=== PATIENT | female | born 1945 | race Caucasian/White ===

== ENCOUNTER 2016-11-02 16:13 | Inpatient (IN) | payer OTHER ==
[~2016-11-02] VITALS: Ht 154.9 cm; Wt 93.0 kg
[~2016-11-02 16:13] MED LIST: ASPIRIN EC81 M1 PO; BIOTIN1000 MC1 PO; CLARITIN10 M1 PO; GABAPENTIN100 M2 PO; GABAPENTIN300 M2 PO; LISINOPRIL10 M1 PO; LYRICA100 M1 PO; PLAVIX75 M1 PO; PRAVACHOL20 M2 PO; VITAMIN D3400 UNI1 PO
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
--- NOTE | 2016-11-02 16:37 | NUR ---
[facility]. PT WITH C/O INCREASED SOB AND WEAKNESS. PT SPEAKING IN SHORT SENTENCES, SPO2 97-98% RA. LUNGS ARE WHEEZY BILATERAL, WORSE ON LEFT. PT A+OX3, MAEX4. NO PEDAL EDEMA NOTED.
[2016-11-02 17:31] LABS: ABSOLUTE BASOPHIL COUNT 0 /CUMM (0.0-0.2); ABSOLUTE EOSINOPHIL COUNT 0.2 /CUMM (0.0-0.7); ABSOLUTE LYMPH COUNT 1.4 /CUMM (1.2-3.4); BASOPHIL % 0.4 % (0.0-2.0); EOSINOPHIL % 2.2 % (0-5); GRANULOCYTE % 69.2 % (42.2-75.2); HEMATOCRIT 34.4 % (37-47); MEAN CORPUSCULAR HGB 29.9 PG (27.0-31.0); MEAN CORPUSCULAR HGB CONC 32.9 G/DL (33.0-37.0); MEAN CORPUSCULAR VOLUME 90.9 FL (81.0-99.0); MEAN PLATELET VOLUME 8.1 FL (7.4-10.4); PLATELET COUNT 229 /CUMM (130-400); RBC DISTRIBUTION WIDTH 13.9 % (11.5-14.5); RED BLOOD CELL CT 3.79 /CUMM (4.20-5.40); WHITE BLOOD CELL COUNT 8.6 /CUMM (4.8-10.8)
[2016-11-02] MEDS ORDERED: GABAPENTIN100 M2 PO (17:37)
[2016-11-02] MEDS ORDERED: AMLODIPINE BESYL5 M1 PO (17:38)
[2016-11-02] MEDS ORDERED: OMEPRAZOLE20 M2 (17:39)
[2016-11-02] MEDS ORDERED: FOLIC ACID1 M1 PO (17:40)
--- NOTE | 2016-11-02 18:50 | RADIOLOGY REPORT ---
EXAMINATION: XR CHEST CLINICAL INFORMATION: Right-sided lung cancer. COMPARISON: 02/22/2016 TECHNIQUE: 2 views of the chest were obtained. FINDINGS: There is a right-sided implantable single lumen catheter with its tip at the SVC right atrial junction. Previously identified right-sided opacity has resolved. There is questionable hilar prominence on the lateral view not as well-seen on the frontal radiograph. The lungs and pleural spaces otherwise appear clear without evidence of congestion, consolidation, or significant appearing effusion or atelectasis. There is no evidence of pneumothorax or pulmonary edema. Included osseous structures appear largely unremarkable. IMPRESSION: New right-sided central venous catheter, previously identified right lower lung field opacity has resolved.
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
--- NOTE | 2016-11-02 22:59 | NUR ---
[facility] ASSIGNMENT [phone]
[2016-11-02 23:00] VITALS: BP 180/100
--- NOTE | 2016-11-02 23:19 | NUR ---
REPORT CALLED TO JOSE MARTÍNEZ
--- NOTE | 2016-11-02 23:24 | CT SCAN REPORT ---
EXAMINATION: CT CHEST WITHOUT CONTRAST CLINICAL INFORMATION: Increased oxygen requirements with expiratory wheezing. Abnormal chest x-ray. COMPARISON: CT 08/31/2016. Two-view chest x-ray performed earlier the same day. TECHNIQUE: Multidetector volumetric CT imaging of the chest was done. Axial MIP volume rendering provided. Sagittal and coronal reformatted images were obtained. DLP: 299 mGy-cm FINDINGS: There is a new subcarinal mass narrowing the proximal mainstem bronchi due to external compression measuring 4.7 x 6.0 cm on image 22 of series 2. The esophagus is likely also compressed and displaced likely in the periphery of this focus. Findings are concerning for a metastatic attic lymph node given the patient's history. Otherwise there is no evidence of mediastinal adenopathy. There is no hilar lymphadenopathy. A single lumen implanted catheter on the right with its tip at the SVC right atrial junction is again noted. Right middle lobe remains chronically collapsed. A spiculated left lower lobe nodule anteriorly just posterior to the major fissure on image 291 of series 4 measures 1.7 cm in transverse dimension by 1 cm in AP dimension. This appears largely unchanged in overall size. A subcentimeter spiculated opacity in the right apex anteriorly appears unchanged. Scattered groundglass opacities right upper lobe appear largely unchanged. Imaging through the included portions of the upper abdomen appear unremarkable. No aggressive osseous lesions to suggest metastases. IMPRESSION: Increasing subcarinal lymphadenopathy with narrowing of the mainstem bronchi. Pulmonary consultation is recommended. Stable appearing pulmonary nodules.
[2016-11-03] VITALS: BP 140/76
--- NOTE | 2016-11-03 02:00 | Admission Certification ---
Admission Certification Certification Statement - As attending physician, I certify that at the time of - admission, based on clinical presentation, severity of - symptoms, need for further diagnostic testing and - therapeutic interventions, and risk of adverse outcomes - without in-hospital treatment, in my clinical assessment, - this patient requires an acute hospital stay for a minimum - of two nights or longer. I have also considered psychsocial - factors such as support system, advanced age, financial - issues, cognitive issues, and failed out-patient treatments, - past re-admission history, safety of patient, and lack of - compliance as applicable. Specific rationale supporting this admission is: Acute hypoxic respiratory failure in this lady with known lung adenocarcinoma.
[2016-11-03 06:52] VITALS: BP 132/70
--- NOTE | 2016-11-03 07:26 | PN- Housestaff ---
KIERAN INGRAM 11/03/16 0724: Subjective Follow-up For: - Shortness of breath Subjective: Ms. Horne is comfortable this morning. Stated that since she is improved symptomatically, and is not short of breath at baseline. Discussed at length about the prognosis and the treatment of lung adenocarcinoma. Vitals were stable overnight. Currently on room air with oxygen saturation around 98% (at rest). Review of Systems Constitutional: Reports: see HPI. Objective Last 24 Hrs of Vital Signs/I&O Vital Signs Date Time Temp Pulse Resp B/P B/P Pulse O2 O2 Flow FiO2 Mean Ox Delivery Rate 11/03 0652 97.8 94 20 132/70 98 Room Air / 0300 97 Room Air / 0000 140/76 07/ 2300 97.6 84 20 180/100 97 Room Air / 2237 78 157/68 07 2147 76 20 154/68 97 Room Air / 1835 97.0 92 20 172/82 98 Room Air 11/02 1740 100 Room Air / 1734 97 07/05 1619 97.6 95 22 170/84 98 Room Air Intake & Output 11/03 0800 07/ 0000 07/05 1600 Intake Total 840 2000 Output Total Balance 840 2000 Intake, IV 600 2000 Intake, Oral 240 Patient 205 lb 205 lb Weight Weight Reported by Patient Reported by Patient Measurement Method Physical Exam General Appearance: Alert Other Physical Findings: General Exam: AAOx3, mild distress, Skin: No rashes, no breakdown HEENT: PERRLA, EOMI Neck: Supple, No JVD No cervical lymphadenopathy CVS: Reg Rate, Normal S1,S2, No MGR Resp: decreased air entry b/l, b/l rales Abdomen: Soft, No tenderness, Normal Bowel Sounds Neuro: Normal Speech, Strength 5/5 b/l x 4 extremities, Sensation intact, CN III -XII NL, Reflexes 2+ Extremities: No cyanosis, 1+ pedal edema Current Medications: Current Medications Sig/Kaya Start time Last Medication Dose Route Stop Time Status Admin Albuterol Sulfate 3 ML ONCE ONE 11/02 1914 DC 11/02 INH 11/03 1915 190 Albuterol Sulfate 3 ML ONCE ONE 11/02 1830 DC 11/02 INH 11/02 183 1840 Albuterol Sulfate 3 ML ONCE ONE 11/02 1645 DC 07 INH 11/02 1646 1733 Amlodipine Besylate 0 .STK-MED ONE 11/02 2228 DC PO Amlodipine Besylate 5 MG DAILY 11/02 2140 AC 11/02 PO 2237 Azithromycin 500 MG DAILY 11/03 1000 AC Sodium Chloride 250 ML IV Azithromycin 500 MG ONCE ONE 11/02 1945 DC 07 Sodium Chloride 250 ML IV 11/02 2044 2034 Clopidogrel Bisulfate 75 MG Q48 11/04 1000 CAN PO Gabapentin 100 MG QPM 11/02 2200 AC 11/02 PO 2300 Guaifenesin 600 MG Q12 11/02 2244 AC 11/03 PO 0021 Heparin Sodium 0 .STK-MED ONE 11/02 2227 DC (Porcine) .ROUTE Heparin Sodium 5,000 UNIT Q8 11/02 2200 AC 11/02 (Porcine) SC 2236 Ipratropium [place] 2.5 ML ONCE ONE 11/02 1645 DC 07 INH 11/02 1646 1733 Loratadine 10 MG DAILY 11/03 1000 AC PO Methylprednisolone 40 MG Q6 11/02 2359 AC 11/03 IV 0610 Methylprednisolone 0 .STK-MED ONE 11/02 1740 DC .ROUTE Methylprednisolone 125 MG ONCE ONE 11/02 1645 DC 07/ IV 11/02 1646 1736 Sodium Chloride 1,000 ML Q13H 11/02 2245 AC 11/03 IV 11/03 1144 0020 Sodium Chloride 1,000 ML BOLUS ONE 11/02 1915 DC 07/ IV 11/02 2013 2008 Sodium Chloride 1,000 ML BOLUS ONE 11/02 1815 DC 07 IV 11/02 2014 1832 Last 24 Hrs of Lab/Efra Results Last 24 Hrs of Labs/Mics: Laboratory Tests 11/03/16 0611: Sodium Pending, Potassium Pending, Chloride Pending, Carbon Dioxide Pending, Anion Gap Pending, BUN Pending, Creatinine Pending, BUN/Creatinine Ratio Pending , CBC w Diff Pending, WBC Pending, RBC Pending, Hgb Pending, Hct Pending, MCV Pending, MCH Pending, RDW Pending, Plt Count Pending, MPV Pending, PUBS MCHC Pending 11/02/16 2130: Estimated GFR 32 L, BUN/Creatinine Ratio 17.5 11/02/16 1720: Anion Gap 12, Estimated GFR 32 L, BUN/Creatinine Ratio 19.4, Glucose 87, Calcium 9.4, Total Bilirubin 0.3, AST 24, ALT 29, Alkaline Phosphatase 169 H, Troponin I 0.04, Total Protein 8.2, Albumin 4.2, Globulin 4.0, Albumin/Globulin Ratio 1.1, CBC w Diff NO MAN DIFF REQ, RBC 3.79 L, MCV 90.9, MCH 29.9, RDW 13.9 , MPV 8.1, Gran % 69.2, Lymphocytes % 16.8 L, Monocytes % 11.4 H, Eosinophils % 2.2, Basophils % 0.4, Absolute Granulocytes 6.0, Absolute Lymphocytes 1.4, Absolute Monocytes 1.0 H, Absolute Eosinophils 0.2, Absolute Basophils 0, PUBS MCHC 32.9 L Microbiology 11/02 1636 LOWER RESP: Respiratory Culture - COLB 11/02 1636 LOWER RESP: Gram Stain - COLB Assessment/Plan Assessment: Ms. Horne is a 71-year-old woman with a past history of lung adenocarcinoma status post chemotherapy ( x 6 cycles carboplatin/pemetrexed discontinued to due to MICHAEL), questionable discoid lupus, coronary artery disease status post stent ( 2005), 40-45 pack years smoking history (not current smoker), brain metastases ( status post gamma knife) is being evaluated for worsening shortness of breath 2 -3 weeks. Last chemo 07/15. At the time of admission, lab findings indicated no leukocytosis WBC 8.6, hemoglobin 11.3 (anemia of chronic disease), electolytes-sodium and potassium within normal limits. Abnormal renal function-BUN 31, serum creatinine 1.6 ( elevated likely due to carboplatin therapy). Liver panel-AST 24, AST 29, alkaline phosphatase 169 (slightly elevated), cardiac enzymes-troponin I- 0.04. Albumin 4.2. Radiological findings-CT chest revealed new subcarinal mass narrowing the proximal mainstem bronchus due to external compression, with likely compression of the esophagus. Approximately 4.7 x 6 cm. Last pathology report 12/24/2015 from right lung middle lobe mass needle biopsy revealed poorly differentiated adenocarcinoma with necrosis. Differential diagnosis: #1 metastatic lymphadenopathy secondary to non-small cell carcinoma #2 non-small cell lung cancer adenocarcinoma Below is the problem list and plan: #1 shortness of breath-likely because of obstruction of upper airways. Since the patient had symptomatic relief with IV Solu-Medrol, and TRC nebs, plan to continue. She may have had COPD (which was undiagnosed) secondary to her smoking. planned to have radiation therapy, which would shrink the tumor and possibly continue with chemotherapy. Patient had kidney injury likely secondary to carboplatin, which would have to be changed to an immunotherapy in the future. The history of discoid lupus, is questionable and need to confirm, if any immunotherapy is initiated. Since the patient have physical obstruction to airways, risk of airway obstruction and post obstruction complications need to be borne in mind-such as post obstructive pneumonia, etc. continue IV Solu- Medrol, and azithromycin. As per Dr. Guerrero, stenting would not alleviate the symptoms in Mrs. Horne's case as the mass is obstructing beyond the tracheal divergence, and extends into the right mainstem bronchus. Has been evaluated by Dr. Bethea-radiation oncologist who recommended radiation 10 doses to shrink the mass. #2 DVT prophylaxis-subcutaneous heparin. Advised the nurse to have alps on at all timesm, and mobilize the patient. Problem List: 1. Brain metastasis 2. Non-small cell lung cancer (NSCLC) Pain Ratin Pain Location: none Pain Goal: Pain 4 or less Pain Plan: tylenol Tomorrow's Labs & Rationales: cbc- pt has malignancy. bep w/ bun, cr- to monitor renal function. JUDIHT GONZALES MD 11/03/16 2469: Attending MD Review Statement Attending Statement Attending MD Statement: examined this patient, discuss w/resident/PA/ENTRY LEVEL AUTOMOTIVE TECHNICIAN, agreed w/resident/PA/ENTRY LEVEL AUTOMOTIVE TECHNICIAN, reviewed EMR data (avail), discussed with nursing, reviewed images Attending Assessment/Plan: 71-year-old female fairly extensive past medical history of advanced non-small cell lung CA status post gamma knife treatment and 6 cycles of chemotherapy here with acute shortness of breath and CT shows a large subcarinal mass likely lymph node compressing on the esophagus and mainstem bronchus. Patient is being empirically treated with IV steroids and IV antibiotics for COPD exacerbation, we are watching that she is able to swallow safely very closely. Appreciate pulmonary and onc eval the plan is going to be palliative radiation to start GRACE. Dr. Guerrero feels that given the extent of obstruction, stenting would not be a feasible option at this time and will need to pursue that. Patient is a full code right now and will need to discuss with onc given the extent of the disease questionable goals of care.
[2016-11-03 08:36] LABS: ABSOLUTE BASOPHIL COUNT 0 /CUMM (0.0-0.2); ABSOLUTE EOSINOPHIL COUNT 0 /CUMM (0.0-0.7); ABSOLUTE GRANULOCYTE CT 7.4 /CUMM (1.4-6.5); ABSOLUTE LYMPH COUNT 0.7 /CUMM (1.2-3.4); ABSOLUTE MONOCYTE COUNT 0 /CUMM (0.10-0.60); BASOPHIL % 0 % (0.0-2.0); EOSINOPHIL % 0 % (0-5); GRANULOCYTE % 91.5 % (42.2-75.2); MEAN CORPUSCULAR HGB 29.9 PG (27.0-31.0); MEAN CORPUSCULAR VOLUME 90.7 FL (81.0-99.0); MEAN PLATELET VOLUME 8.3 FL (7.4-10.4); PLATELET COUNT 211 /CUMM (130-400); RBC DISTRIBUTION WIDTH 13.9 % (11.5-14.5); RED BLOOD CELL CT 3.53 /CUMM (4.20-5.40)
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
[2016-11-03 10:11] LABS: WHITE BLOOD CELL COUNT 8.1 /CUMM (4.8-10.8)
--- NOTE | 2016-11-03 11:25 | NUR ---
NURSING NOTE: PATIENT LEFT FLOOR VIA STRETCHER WITH [facility] TO [facility]ER CENTER FOR RADIATION THERAPY. PATIENT A/OX3, STEADY GAIT, BREATHING ON ROOM AIR WITHOUT DIFFICULTY, INSPIRATORY WHEEZES NOTED. WILL AWAIT RETURN.
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
--- NOTE | 2016-11-03 12:25 | NUR ---
NURSING NOTE: PATIENT RETURNED FROM CANCER CENTER VIA STRETCHER WITH [facility]. NO ACUTE CHANGES NOTED.
[2016-11-03 14:48] VITALS: BP 136/70
[2016-11-03 22:49] VITALS: BP 144/68
[2016-11-04 06:10] VITALS: BP 179/97
--- NOTE | 2016-11-04 07:00 | PN- Housestaff ---
KIERAN INGRAM 11/04/16 0659: Subjective Follow-up For: Shortness of breath, likely postobstructive from subcarinal lymphadenopathy Complaints: no complaints Subjective: Ms. Horne is comfortable. Does not have any shortness of breath at baseline. Stated that she become short of breath upon ambulation. We talked about prognosis of lung cancer. She does not seem to fully grasp the extent of her condition. As per the patient, the oncologist discussed with him extensively about the prognosis of the disease. Currently stable. Dr. Bethea, who is a radiation oncologist has been following this patient. Review of Systems Constitutional: Reports: see HPI. Objective Last 24 Hrs of Vital Signs/I&O Vital Signs Date Time Temp Pulse Resp B/P B/P Pulse O2 O2 Flow FiO2 Mean Ox Delivery Rate 11/04 0000 Room Air 11/03 2249 97.9 85 20 144/68 97 11/03 2019 Room Air Room Air 11/03 1856 90 150/70 11/03 1600 98 Room Air 11/03 1448 97.3 92 20 136/70 96 Room Air 11/03 0800 Room Air Intake & Output 11/04 0800 11/04 0000 11/03 1600 Intake Total 1000 Output Total Balance 1000 Intake, Oral 1000 Physical Exam General Appearance: Alert Other Physical Findings: General Exam: AAOx3, mild distress, Skin: No rashes, no breakdown HEENT: PERRLA, EOMI Neck: Supple, No JVD No cervical lymphadenopathy CVS: Reg Rate, Normal S1,S2, No MGR Resp: decreased air entry b/l, b/l rales Abdomen: Soft, No tenderness, Normal Bowel Sounds Neuro: Normal Speech, Strength 5/5 b/l x 4 extremities, Sensation intact, CN III -XII NL, Reflexes 2+ Extremities: No cyanosis, 1+ pedal edema Current Medications: Current Medications Sig/Kaya Start time Last Medication Dose Route Stop Time Status Admin Amlodipine Besylate 5 MG 1800 11/03 1800 AC 11/03 PO 185 Amlodipine Besylate 5 MG DAILY 11/02 214 DC 11/02 PO 223 Azithromycin 500 MG 1600 / 1600 AC 11/03 Sodium Chloride 250 ML IV 1654 Azithromycin 500 MG DAILY 11/03 1000 DC Sodium Chloride 250 ML IV Gabapentin 100 MG QPM 11/02 2200 AC 11/03 PO 2137 Guaifenesin 600 MG Q12 11/02 2244 AC 11/03 PO 2137 Heparin Sodium 5,000 UNIT Q8 11/02 2200 AC 11/03 (Porcine) SC 1511 Loratadine 10 MG DAILY 11/03 1000 AC 11/03 PO 0853 Methylprednisolone 40 MG BID 11/03 2200 AC 11/03 IV 2139 Methylprednisolone 40 MG Q6 11/02 2359 DC 11/03 IV 0610 Sodium Chloride 1,000 ML Q13H 11/02 2245 DC 11/03 IV 11/03 1144 0020 Last 24 Hrs of Lab/Efra Results Last 24 Hrs of Labs/Mics: Laboratory Tests 11/04/16 0545: Sodium Pending, Potassium Pending, Chloride Pending, Carbon Dioxide Pending, Anion Gap Pending, BUN Pending, Creatinine Pending, BUN/Creatinine Ratio Pending , CBC w Diff Pending, WBC Pending, RBC Pending, Hgb Pending, Hct Pending, MCV Pending, MCH Pending, RDW Pending, Plt Count Pending, MPV Pending, PUBS MCHC Pending Assessment/Plan Assessment: Ms. Horne is a 71-year-old woman with a past history of lung adenocarcinoma status post chemotherapy ( x 6 cycles carboplatin/pemetrexed discontinued to due to MICHAEL), questionable discoid lupus, coronary artery disease status post stent ( 2005), 40-45 pack years smoking history (not current smoker), brain metastases ( status post gamma knife) is being evaluated for worsening shortness of breath 2 -3 weeks. Last chemo 07/15. Differential diagnosis: #1 metastatic lymphadenopathy secondary to non-small cell carcinoma #2 non-small cell lung cancer adenocarcinoma Below is the problem list and plan: #1 shortness of breath-likely because of obstruction of upper airways. The patient has history of lung cancer, adenocarcinoma which probably metastasized to other organs. She also has a history of COPD which was not formally diagnosed. Further treatment of bronchial suction secondary to lymphadenopathy, stenting could not be done due to the location of the mass. Radiation therapy is planned for the next 10 days. Patient had symptomatic relief with IV Solu- Medrol. Taper prednisone. She was initially treated with carboplatin and pemetrexed, which was discontinued secondary to kidney injury. Plan is to start pembrolizumab. The history of discoid lupus, is questionable and need to confirm, if any immunotherapy is initiated. Since the patient have physical obstruction to airways, risk of airway obstruction and post obstruction complications need to be borne in mind-such as post obstructive pneumonia, etc. follow-up with Dr. Guerrero and Dr. Bethea. #2 DVT prophylaxis-subcutaneous heparin. Advised the nurse to have alps on at all timesm, and mobilize the patient. Problem List: 1. Brain metastasis 2. Non-small cell lung cancer (NSCLC) Pain Ratin Pain Location: None Pain Goal: Pain 4 or less Pain Plan: Tylenol when necessary Tomorrow's Labs & Rationales: Complete blood count-to monitor for neutropenia/leukopenia Basic electrolyte panel with serum creatinine and BUN-to monitor for kidney function. JUDITH GONZALES MD 11/04/16 0925: Attending MD Review Statement Attending Statement Attending MD Statement: examined this patient, discuss w/resident/PA/RN GYNECOLOGY, agreed w/resident/PA/RN GYNECOLOGY, reviewed EMR data (avail), discussed with nursing, reviewed images Attending Assessment/Plan: 71-year-old female with metastatic non-small cell lung CA status post chemotherapy, gamma knife for brain metastases and now here with acute hypoxemic respiratory failure with a very large subcarinal mass likely lymph node compressing her esophagus mainstem bronchus and multiple areas of the respiratory tree. When she lies down she is okay but on very minimal ambulation she becomes extremely short of breath, audible wheezing and her sats dropped to the 80s. She was empirically treated with IV steroids and antibiotics and we are safely tapering that off -the issue is more this large mass and obstruction. She had a simulation radiation done yesterday and the plan is radiation today and tomorrow with the plan for total of 10 treatments. At this point she is not willing to change her CODE STATUS, she wants to discuss this with her oncologist and despite her extensive disease and what I consider to be poor prognosis she doesn 't seem to be aware of the extent of the disease. I will talk to onc and pulmonary to follow-up.
[2016-11-04 08:19] LABS: ABSOLUTE BASOPHIL COUNT 0 /CUMM (0.0-0.2); ABSOLUTE EOSINOPHIL COUNT 0 /CUMM (0.0-0.7); ABSOLUTE GRANULOCYTE CT 16.5 /CUMM (1.4-6.5); ABSOLUTE LYMPH COUNT 0.9 /CUMM (1.2-3.4); ABSOLUTE MONOCYTE COUNT 0.4 /CUMM (0.10-0.60); BASOPHIL % 0 % (0.0-2.0); EOSINOPHIL % 0 % (0-5); GRANULOCYTE % 92.3 % (42.2-75.2); HEMATOCRIT 33.2 % (37-47); MEAN CORPUSCULAR VOLUME 90.9 FL (81.0-99.0); MEAN PLATELET VOLUME 8.4 FL (7.4-10.4); PLATELET COUNT 234 /CUMM (130-400); RBC DISTRIBUTION WIDTH 13.8 % (11.5-14.5); RED BLOOD CELL CT 3.65 /CUMM (4.20-5.40)
--- NOTE | 2016-11-04 08:26 | Discharge Summary ---
Visit Information Visit Dates Admission Date: 11/02/16 Discharge Date: 11/08/16 Hospital Course Course Attending Physician: JANET PALMA,JUDITH Lopez Primary Care Physician: ADALBERTO JUSTIN MD Hospital Course: Ms. Horne is a 71-year-old woman with a past history of poorly differented lung adenocarcinoma status post chemotherapy ( x 6 cycles carboplatin/pemetrexed discontinued to due to MICHAEL), questionable discoid lupus, coronary artery disease status post stent (2005), 40-45 pack years smoking history (not current smoker), brain metastases (status post gamma knife) is being evaluated for worsening shortness of breath 2-3 weeks. Last chemo 07/15. At the time of admission, lab findings indicated no leukocytosis WBC 8.6, hemoglobin 11.3 (anemia of chronic disease), electolytes-sodium and potassium within normal limits. Abnormal renal function-BUN 31, serum creatinine 1.6 ( elevated likely due to carboplatin therapy). Liver panel-AST 24, AST 29, alkaline phosphatase 169 (slightly elevated), cardiac enzymes-troponin I- 0.04. Albumin 4.2. Radiological findings-CT chest revealed new subcarinal mass narrowing the proximal mainstem bronchus due to external compression, with likely compression of the esophagus. Approximately 4.7 x 6 cm. Last pathology report 12/24/2015 from right lung middle lobe mass needle biopsy revealed poorly differentiated adenocarcinoma with necrosis. Diagnosis: #1 metastatic lymphadenopathy secondary to non-small cell carcinoma #2 non-small cell lung cancer adenocarcinoma Below is the problem list and plan: #1 shortness of breath-likely because of obstruction of airways, due to sub- carinal lymphadenopathy. Radiologial evident of increased subcarinal JUSTUS with narrowing of mainstem bronchi and esophageal displacement and compression. Considering the given degree of compression and location, bronchoscopic evaluation will not be useful at this time, and stenting was not an option. She was treated w/ Radiation therapy 3000 cGy for symptomatic relief. Arragnements were made while she was in the hospital, and would continue the radiation tx as an outpatient. The pt didnt have any formal diagnosis of COPD, but considerig her smoking history she was treated w/ iv solumedrol and prednisone taper. She had pulse ox > 95 % on RA. She was short of breath, upon ambulaiton, and had wheezing at rest; and declined the use of supplemental oxygen at the time of discharge. As per Dr. Emanuel, the plan is continue with immunotherapty, and considering the history of discoid lupus, flare up was discussed while in the hospital. The change in brain met size/new lesions was not addressed while in this hospital visit. Pt did not have neurological symptoms. Defered the decsion for discussion of further treatment by Dr. Emanuel and Dr. Avina. The disease prognosis was discussed at several occassions, and the pt seemed aware of the complications, and she wished to be treated w/ chemo, radiation, when needed. Allergies: Coded Allergies: adhesive (REDNESS OF SKIN 11/02/16) epinephrine (COLD SWEATS, FEELS SHAKEY, DYSPNEA 11/02/16) fentanyl (COLD SWEATS, BODY SHAKES, DYSPNEA 11/02/16) latex (REDNESS OF SKIN 11/02/16) Pertinent Lab Results: CAT - CT CHEST WO IV CONTRAST 11/02/16- Increasing subcarinal lymphadenopathy with narrowing of the mainstem bronchi. Pulmonary consultation is recommended. Stable appearing pulmonary nodules. Disposition Summary Disposition Principal Diagnosis: Lung mass, adenocarcinoma Additional Diagnosis: Brain metastasis Discharge Disposition: home or self care Discharge Instructions General Discharge Information Code Status: Full Code Patient's Diet: regular diet Patient's Activity: as tolerated. Follow-Up Instructions/Appts: - please see your pcp within one week of discharge. - Please see your oncologoist and radiation oncologist within one week of discharge. Please see your radiation oncologist on 11/09/16 at 11:45 AM. - Please see your lung doctor/cable assembler and swager within one week of discharge. - If you have any worsenign symptoms, please seek medical advice immediately. - Please complete the prednisone taper as prescribed. Medications at Discharge Discharge Medications: Stop taking the following medications: Pravastatin Sodium (Pravastatin Sodium) (Unknown Strength) TABLET Qty = 90 Continue taking these medications: Clopidogrel Bisulfate (Plavix) 75 MG TABLET 1 Tablet ORAL Every other day Comments: Last Taken: 11/08/16 Time: 0900 AM Loratadine (Claritin) 10 MG TABLET 1 Tablet ORAL DAILY Comments: Last Taken: 11/08/16 Time: 9:00 PM Cholecalciferol (Vitamin D3) (Vitamin D3) 400 UNIT TABLET 1 Tablet ORAL DAILY Comments: NOT GIVEN IN HOSPITAL Gabapentin (Gabapentin) 100 MG CAPSULE 1 Capsule ORAL Every night Comments: Last Taken: 11/07/16 Time: 8:45 PM Amlodipine Besylate (Amlodipine Besylate) 5 MG TABLET 1 Tablet ORAL DAILY Qty = 30 Comments: Last Taken: 11/07/16 Time: 6:30 PM Folic Acid (Folic Acid) 1 MG TABLET 1 Tablet ORAL DAILY Qty = 90 Comments: NOT GIVEN IN HOSPITAL Start taking the following new medications: Prednisone (Prednisone) 10 MG TABLET 0 ORAL DAILY Qty = 30 No Refills Instructions: On Take 11/09-11/10 50 MG 11/11-11/12 40 MG 11/13-11/14 30 MG 11/15-11/16 20 MG 11/17-11/18 10 MG Then Stop Comments: Last Taken: 11/08/16 Time: 0900 AM The following medications have been changed: Old: Omeprazole (Omeprazole) (Unknown Strength) CAPSULE. Unknown Dose Qty = 30 New: Omeprazole (Omeprazole) 20 MG CAPSULE. 20 Capsule ORAL DAILY Qty = 30 Comments: NOT GIVEN IN HOSPITAL Copies To: MARGOTH PALMA,ADALBERTO Valdovinos MD Review Statement Documenting Attending: SWATHI ROPER M.D
[2016-11-04 10:16] LABS: WHITE BLOOD CELL COUNT 17.9 /CUMM (4.8-10.8)
--- NOTE | 2016-11-04 10:58 | PN- Pulmonary ---
Subjective HPI/Critical Care Issues: pt seen and examined underwent RT simulation awaiting RT stable with wheezing, more comfortable on her back Objective Current Medications: Current Medications Sig/Kaya Start time Last Medication Dose Route Stop Time Status Admin Amlodipine Besylate 5 MG 1800 11/03 1800 AC 11/03 PO 1856 Azithromycin 500 MG 1600 11/03 1600 AC 11/03 Sodium Chloride 250 ML IV 1654 Azithromycin 500 MG DAILY 11/03 1000 DC Sodium Chloride 250 ML IV Gabapentin 100 MG QPM 11/02 2200 AC 11/03 PO 2137 Guaifenesin 600 MG Q12 11/02 2244 AC 11/04 PO 0930 Heparin Sodium 5,000 UNIT Q8 11/02 2200 AC 11/03 (Porcine) SC 1511 Loratadine 10 MG DAILY 11/03 1000 AC 11/04 PO 0930 Methylprednisolone 40 MG BID 11/03 2199 AC 11/04 IV 11/04 2300 0930 Methylprednisolone 40 MG Q6 11/02 2359 DC 11/03 IV 0610 Prednisone 40 MG DAILY 11/05 1000 AC PO Vital Signs & I&O Last 24 Hrs of Vitals and I&O: Vital Signs Date Time Temp Pulse Resp B/P B/P Pulse O2 O2 Flow FiO2 Mean Ox Delivery Rate 11/04 0610 98.0 82 20 179/97 97 Room Air 11/04 0000 Room Air 11/03 2249 97.9 85 20 144/68 97 11/03 2019 Room Air Room Air 11/03 1856 90 150/70 / 1600 98 Room Air / 1448 97.3 92 20 136/70 96 Room Air Exam Other Physical Findings: gen awake and alert heent ncat cvs s1, s2 lungs bilateral wheezing abd soft, bs+ ext without edema, +clubbing Results Last 24 Hrs of Lab Results: Laboratory Tests 11/04/16 0545: Anion Gap 12, Estimated GFR 34 L, BUN/Creatinine Ratio 24.0, CBC w Diff NO MAN DIFF REQ, RBC 3.65 L, MCV 90.9, MCH 30.0, RDW 13.8, MPV 8.4, Gran % 92.3 H, Lymphocytes % 5.2 L, Monocytes % 2.5, Eosinophils % 0, Basophils % 0 L, Absolute Granulocytes 16.5 H, Absolute Lymphocytes 0.9 L, Absolute Monocytes 0.4, Absolute Eosinophils 0, Absolute Basophils 0, PUBS MCHC 33.0 Impression/Plan Impression/Plan Impression/Plan: Impression * nsclc adenocarcinoma with mets * narrowing of mainstem bronchi and esophageal displacement and compression from an increased subcarinal LN Plan -radiation oncology appreciated, plan for RT today, s/p simulation -f/u oncology -given degree of compression and location, bronchoscopic evaluation will not be useful at this time -compression involves multiple structure and other than radiation no obvious solution -continue solumedrol to 40mg iv q12h today and can transition to po prednisone tomorrow if no events -cough suppression DVT prophylaxis at all times
[2016-11-04 14:29] VITALS: BP 138/80
[2016-11-04 14:42] VITALS: BP 138/80
[2016-11-04 21:58] VITALS: BP 130/74
[2016-11-05 06:38] VITALS: BP 144/84
--- NOTE | 2016-11-05 07:50 | NUR ---
NURSING NOTE: PATIENT LEFT FLOOR VIA STRETCHER WITH [facility] TO [facility] FOR RADIATION THERAPY AT THIS TIME. PATIENT A/OX3, STEADY GAIT, DENIES PAIN AT THIS TIME. PATIENT ON ROOM AIR SATTING WELL @ 98%, INSPIRATORY WHEEZE HEARD THROUGHOUT. PATIENT BECOMES SLIGHTLY SOB ON EXERTION. WILL AWAIT RETURN.
--- NOTE | 2016-11-05 08:40 | PN- Housestaff ---
DANNY RAY 11/05/16 0840: Subjective Follow-up For: Upper airway obstruction secondary to lymphadenopathy due to metastasis Complaints: no complaints Subjective: Patient reports to have slept well she feels like family breath sounds harsh remained the same had just completed second dose of radiation therapy and she is planned for 10. She expressed to start single changes after 5-6 doses. Patient denies any pain she did not sleep well due to high steroid doses which makes her jittery. Denies any difficulty swallowing and no nausea or vomiting. He understands that she'll not get radiation therapy tomorrow but will continue Monday. Review of Systems Constitutional: Denies: chills, fever. Cardiovascular: Denies: chest pain, palpitations. Respiratory: Reports: stridor. Denies: cough, short of breath. Gastrointestinal: Denies: nausea, vomiting. Genitourinary: Denies: dysuria, urgency. Musculoskeletal: Denies: no symptoms. Comments: All other systems reviewed and are negative Objective Last 24 Hrs of Vital Signs/I&O Vital Signs Date Time Temp Pulse Resp B/P B/P Pulse O2 O2 Flow FiO2 Mean Ox Delivery Rate 11/05 0800 Room Air 11/05 0638 97.9 76 20 144/84 95 / 2158 98.5 74 20 130/74 95 / 1837 84 163/78 11/04 1600 Room Air 11/04 1442 97.8 84 20 138/80 / 1429 97.8 84 20 138/80 94 Room Air Intake & Output 11/05 1600 11/05 0800 07/ 0000 Intake Total 190 140 Output Total Balance 190 140 Intake, IV 10 20 Intake, Oral 180 120 Physical Exam General Appearance: Alert, Oriented X3, Cooperative, No Acute Distress Skin: No Rashes, No Breakdown Skin Temp/Moisture Exam: Warm/Dry Sepsis Skin Exam (color): Normal for Ethnicity HEENT: Atraumatic, Mucous Membr. moist/pink Neck: Supple, No JVD Cardiovascular: Regular Rate, Normal S1, Normal S2, No Murmurs Lungs: Clear to Auscultation, Normal Air Movement Abdomen: Normal Bowel Sounds, Soft, No Tenderness, obese Neurological: Normal Speech, Normal Tone Extremities: No Clubbing, No Cyanosis, No Edema Current Medications: Current Medications Sig/Kaya Start time Last Medication Dose Route Stop Time Status Admin Amlodipine Besylate 5 MG 1800 11/03 1800 AC 11/04 PO 1837 Azithromycin 500 MG 1600 11/03 1600 AC 11/04 Sodium Chloride 250 ML IV 1622 Gabapentin 100 MG QPM 11/02 220 AC 11/04 PO 221 Guaifenesin 600 MG Q12 11/02 2244 AC 11/05 PO 0904 Heparin Sodium 5,000 UNIT Q8 11/02 220 AC 11/03 (Porcine) SC 1511 Loratadine 10 MG DAILY 11/03 1000 AC 11/05 PO 09 Methylprednisolone 40 MG BID 11/03 2199 DC 11/04 IV 11/04 2300 221 Prednisone 40 MG DAILY 11/05 1000 AC 11/05 PO 09 Last 24 Hrs of Lab/Efra Results Last 24 Hrs of Labs/Mics: Laboratory Tests 11/05/16 0536: Anion Gap 10, Estimated GFR 34 L, BUN/Creatinine Ratio 27.3 H, CBC w Diff NO MAN DIFF REQ, RBC 3.70 L, MCV 90.5, MCH 30.1, RDW 13.9, MPV 8.4, Gran % 91.7 H , Lymphocytes % 5.6 L, Monocytes % 2.7, Eosinophils % 0, Basophils % 0 L, Absolute Granulocytes 12.3 H, Absolute Lymphocytes 0.8 L, Absolute Monocytes 0.4, Absolute Eosinophils 0, Absolute Basophils 0, PUBS MCHC 33.3 Assessment/Plan Assessment: Ms. 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 Last chemo 07/15. Differential diagnosis: #1 metastatic lymphadenopathy secondary to non-small cell carcinoma #2 non-small cell lung cancer adenocarcinoma shortness of breath-likely because of obstruction of upper airways. The patient has history of lung cancer, adenocarcinoma which probably metastasized to other organs. She also has a history of COPD which was not formally diagnosed. Further treatment of bronchial suction secondary to lymphadenopathy, stenting could not be done due to the location of the mass. Radiation therapy is planned for the next 10 days. Patient had symptomatic relief with IV Solu-Medrol. Taper prednisone. Has started radiotherapy and today received his second dose, reports symptoms stable but not worsening and is expecting to start getting relief after 5-6 sessions. She was initially treated with carboplatin and pemetrexed, which was discontinued secondary to kidney injury. Plan is to start pembrolizumab. The history of discoid lupus, is questionable and need to confirm, if any immunotherapy is initiated. Since the patient have physical obstruction to airways, risk of airway obstruction and post obstruction complications need to be borne in mind-such as post obstructive pneumonia, etc. follow-up with Dr. Guerrero and Dr. Bethea. Patient was started on IV Solu-Medrol and is now on oral prednisone 40 mg which will give a quick taper. Seasonal allergies Continue with Claritin DVT prophylaxis-subcutaneous heparin. Advised the nurse to have alps on at all timesm, and mobilize the patient. CODE STATUS: The patient disease is advanced, had an extensive discussion with primary team yesterday and opted to remain full code. We will continue to assess the patient and probably consider discussion on review of CODE STATUS prior to discharge. Problem List: 1. Non-small cell lung cancer (NSCLC) 2. Brain metastasis 3. DVT prophylaxis Pain Ratin Pain Location: None Pain Goal: Remain pain free Pain Plan: When necessary pain medications Tomorrow's Labs & Rationales: None required DVT/Prophylaxis: mechanical, pharmacological JUDSON PALMA,CINDYRex 11/05/16 1313: Attending MD Review Statement Attending Statement Attending MD Statement: examined this patient, discuss w/resident/PA/ENGINE EMISSION TECHNICIAN, agreed w/resident/PA/ENGINE EMISSION TECHNICIAN, reviewed EMR data (avail), discussed with nursing, discussed with case mgmt, amended to note Attending Assessment/Plan: Patient seen and examined very pleasant and not in any acute distress. She does not appear to be in any distress at rest however when talking she takes deep breaths between sentences. She reports feeling much better compared to presentation. She however states she is only able to ambulate patient presents before getting short of breath. On examination lungs are clear to auscultation bilaterally. She is maintaining saturation on room air. Started radiation therapy yesterday and had a second session today. Her next session is scheduled for Monday. She is to complete a total of 10 sessions. She is currently stable at rest. We will continue management as directed by her pulmonology and oncology service.
[2016-11-05 08:52] LABS: ABSOLUTE BASOPHIL COUNT 0 /CUMM (0.0-0.2); ABSOLUTE EOSINOPHIL COUNT 0 /CUMM (0.0-0.7); ABSOLUTE GRANULOCYTE CT 12.3 /CUMM (1.4-6.5); ABSOLUTE LYMPH COUNT 0.8 /CUMM (1.2-3.4); ABSOLUTE MONOCYTE COUNT 0.4 /CUMM (0.10-0.60); BASOPHIL % 0 % (0.0-2.0); EOSINOPHIL % 0 % (0-5); GRANULOCYTE % 91.7 % (42.2-75.2); HEMATOCRIT 33.5 % (37-47); MEAN CORPUSCULAR HGB 30.1 PG (27.0-31.0); MEAN CORPUSCULAR HGB CONC 33.3 G/DL (33.0-37.0); MEAN CORPUSCULAR VOLUME 90.5 FL (81.0-99.0); MEAN PLATELET VOLUME 8.4 FL (7.4-10.4); PLATELET COUNT 243 /CUMM (130-400); RBC DISTRIBUTION WIDTH 13.9 % (11.5-14.5); WHITE BLOOD CELL COUNT 13.4 /CUMM (4.8-10.8)
--- NOTE | 2016-11-05 08:57 | NUR ---
NURSING NOTE: PATIENT RETURNED TO FLOOR VIA STRETCHER WITH [facility] FROM [facility]. PATIENT DENIES PAIN AT THIS TIME. STILL SATTING WELL ON ROOM AIR WITH INSPIRATORY WHEEZES STILL NOTED. PATIENT DENIES SOB AT THIS TIME. WILL CONTINUE TO MONITOR.
[2016-11-05 14:43] VITALS: BP 144/70
--- NOTE | 2016-11-05 17:19 | PN- Pulmonary ---
Subjective HPI/Critical Care Issues: The patient is awake and alert. She has ongoing stridor, however she reports feeling well. She notes that she is not short of breath despite her stridor. She did well with radiation earlier today. She offers no new complaints. Objective Current Medications: Current Medications Sig/Kaya Start time Last Medication Dose Route Stop Time Status Admin Amlodipine Besylate 5 MG 1800 07/ 1800 AC 11/04 PO 1837 Azithromycin 500 MG 1600 11/03 1600 AC 11/05 Sodium Chloride 250 ML IV 1636 Gabapentin 100 MG QPM 11/02 2200 AC 11/04 PO 2212 Guaifenesin 600 MG Q12 11/02 2244 AC 11/05 PO 0904 Heparin Sodium 5,000 UNIT Q8 11/02 2200 AC 11/03 (Porcine) SC 1511 Loratadine 10 MG DAILY 11/03 1000 AC 11/05 PO 0904 Methylprednisolone 40 MG BID 11/03 2200 DC 11/04 IV 11/04 2300 2212 Nystatin 1 EMMIE BID 11/05 220 AC TOP Prednisone 40 MG DAILY 11/05 1000 AC 11/05 PO 0904 Vital Signs & I&O Last 24 Hrs of Vitals and I&O: Vital Signs Date Time Temp Pulse Resp B/P B/P Pulse O2 O2 Flow FiO2 Mean Ox Delivery Rate 11/05 1554 98 Room Air / 1443 97.6 90 20 144/70 98 Room Air / 0800 Room Air / 0638 97.9 76 20 144/84 95 /07 2158 98.5 74 20 130/74 95 /07 1837 84 163/78 Intake & Output 11/05 1600 11/05 0800 08 0000 Intake Total 900 190 140 Output Total Balance 900 190 140 Intake, IV 10 20 Intake, Oral 900 180 120 Exam General Appearance: no apparent distress, alert, awake, comfortable Head: atraumatic, normal appearance Neck: supple Respiratory: lungs clear, upper airway stridor heard Cardiovascular: regular rate/rhythm Abdomen: normal bowel sounds, soft, non-tender Extremities: no edema Skin: intact, normal color, warm/dry Results Last 24 Hrs of Lab Results: Laboratory Tests 11/05/16 0536: Anion Gap 10, Estimated GFR 34 L, BUN/Creatinine Ratio 27.3 H, CBC w Diff NO MAN DIFF REQ, RBC 3.70 L, MCV 90.5, MCH 30.1, RDW 13.9, MPV 8.4, Gran % 91.7 H , Lymphocytes % 5.6 L, Monocytes % 2.7, Eosinophils % 0, Basophils % 0 L, Absolute Granulocytes 12.3 H, Absolute Lymphocytes 0.8 L, Absolute Monocytes 0.4, Absolute Eosinophils 0, Absolute Basophils 0, PUBS MCHC 33.3 Impression/Plan Impression/Plan Impression/Plan: 1. NSCL adenocarcinoma with mets. 2. Marrowing of mainstem bronchi and esophageal displacement and compression from an increased subcarinal LN, resulting in upper airway stridor. Recommendations: * Continue to follow recommendations from radiation oncology. * Given degree of compression and location, bronchoscopic evaluation will not be useful at this time * Compression involves multiple structures and other than radiation no obvious solution. * Continue solumedrol to 40mg iv q12h today. Will consider changing over to prednisone soon. * Continue with cough suppression. * DVT prophylaxis at all times. * Continue all supportive care.
[2016-11-05 21:59] VITALS: BP 126/66
[2016-11-06 06:38] VITALS: BP 154/88
--- NOTE | 2016-11-06 09:24 | PN- Housestaff ---
[facility] 11/06/16 0924: Subjective Follow-up For: Upper airway obstruction secondary to lymphadenopathy due to metastasis Complaints: no complaints Subjective: Seen and examined, no complaint except for SOB on exertion, no overnight events. Vitals stable. Review of Systems Constitutional: Reports: no symptoms. Cardiovascular: Reports: no symptoms. Respiratory: Reports: short of breath. Gastrointestinal: Reports: no symptoms. Genitourinary: Reports: no symptoms. Musculoskeletal: Reports: no symptoms. Skin: Reports: no symptoms. Objective Last 24 Hrs of Vital Signs/I&O Vital Signs Date Time Temp Pulse Resp B/P B/P Pulse O2 O2 Flow FiO2 Mean Ox Delivery Rate 11/06 1731 78 140/70 11/06 1600 Room Air 11/06 1425 97.9 72 20 150/80 96 Room Air 11/06 0800 97 Trach Mask 11/06 0638 98.0 69 20 154/88 97 / 0000 Room Air 11/05 2159 97.5 86 20 126/66 96 Room Air Intake & Output 11/06 1600 11/06 0800 11/06 0000 Intake Total 800 120 120 Output Total Balance 800 120 120 Intake, Oral 800 120 120 Number 0 Bowel Movements Physical Exam General Appearance: Alert, Oriented X3, Cooperative, No Acute Distress Skin: No Rashes, No Breakdown, No Significant Lesion HEENT: Atraumatic, PERRLA, EOMI Cardiovascular: Regular Rate, Normal S1, Normal S2, No Murmurs Lungs: Normal Air Movement Abdomen: Normal Bowel Sounds, Soft, No Tenderness Extremities: No Edema, Normal Pulses Vascular: Normal Pulses, Pulses Symmetrical Current Medications: Current Medications Sig/Kaya Start time Last Medication Dose Route Stop Time Status Admin Amlodipine Besylate 5 MG 1800 11/03 1800 AC 11/06 PO 1731 Azithromycin 500 MG 1600 11/03 1600 AC 11/06 Sodium Chloride 250 ML IV 1545 Clopidogrel Bisulfate 75 MG Q48 / 1630 AC 11/06 PO 1731 Gabapentin 100 MG QPM 11/02 2199 AC 11/05 PO 205 Guaifenesin 600 MG Q12 11/02 2244 AC 11/06 PO 104 Heparin Sodium 5,000 UNIT Q8 11/02 2199 AC 11/03 (Porcine) SC 1511 Loratadine 10 MG DAILY 11/03 1000 AC 11/06 PO 1047 Nystatin 1 EMMIE BID 11/05 2199 AC 11/06 TOP 1048 Prednisone 40 MG DAILY 11/05 1000 AC 11/06 PO 1047 Last 24 Hrs of Lab/Efra Results Last 24 Hrs of Labs/Mics: No labs Assessment/Plan Assessment: Ms. 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 Last chemo 07/15. Differential diagnosis: #1 metastatic lymphadenopathy secondary to non-small cell carcinoma #2 non-small cell lung cancer adenocarcinoma shortness of breath-likely because of obstruction of upper airways. The patient has history of lung cancer, adenocarcinoma which probably metastasized to other organs. She also has a history of COPD which was not formally diagnosed. Further treatment of bronchial suction secondary to lymphadenopathy, stenting could not be done due to the location of the mass. Radiation therapy is planned for the next 10 days. Patient had symptomatic relief with IV Solu-Medrol. Taper prednisone. Has started radiotherapy and today received his second dose, reports symptoms stable but not worsening and is expecting to start getting relief after 5-6 sessions. She was initially treated with carboplatin and pemetrexed, which was discontinued secondary to kidney injury. Plan is to start pembrolizumab. The history of discoid lupus, is questionable and need to confirm, if any immunotherapy is initiated. Since the patient have physical obstruction to airways, risk of airway obstruction and post obstruction complications need to be borne in mind-such as post obstructive pneumonia, etc. follow-up with Dr. Guerrero and Dr. Bethea. Patient was started on IV Solu-Medrol and is now on oral prednisone 40 mg which will give a quick taper. Seasonal allergies Continue with Claritin DVT prophylaxis-subcutaneous heparin. Advised the nurse to have alps on at all timesm, and mobilize the patient. CODE STATUS: The patient disease is advanced, had an extensive discussion with primary team yesterday and opted to remain full code. We will continue to assess the patient and probably consider discussion on review of CODE STATUS prior to discharge. Problem List: 1. Respiratory failure 2. Non-small cell lung cancer (NSCLC) Pain Ratin Pain Location: - Pain Goal: Remain pain free Pain Plan: - Tomorrow's Labs & Rationales: cbc, bep DVT/Prophylaxis: pharmacological JUDSON PALMA,SWATHI 11/06/16 1155: Attending MD Review Statement Attending Statement Attending MD Statement: examined this patient, discuss w/resident/PA/MERRY GO ROUND ATTENDANT, agreed w/resident/PA/MERRY GO ROUND ATTENDANT, reviewed EMR data (avail), discussed with nursing, amended to note Attending Assessment/Plan: Patient seen and examined. Resting comfortably a multivitamin acute distress. Issues overnight. She continues with his saturation on room air. She however continues reported dyspnea with exertion within the room. She is scheduled for make stools or radiation therapy tomorrow. Recommendations: -Continue palliative radiation therapy. Next dose is due tomorrow. -Patient has been transitioned to oral prednisone therapy. -Dystrophic planning once patient has been cleared by the oncology and pulmonology service.
[2016-11-06 14:25] VITALS: BP 150/80
[2016-11-06 22:03] VITALS: BP 158/82
--- NOTE | 2016-11-07 05:48 | PN- Housestaff ---
KIERAN INGRAM 11/07/16 0547: Subjective Follow-up For: - Lung mass, subcarinal likely LN - s/p Radiation Complaints: no complaints Subjective: Pt comfortable. No new complaints. Still short of breath, while she is ambulating. Vitals stable. Pt denies any discussion of goals of care. Reports anxiety, but doesnt want any anxiolytics. Remained afebrile. Reported dysphagia after the RT, and she would like to still be on regular diet and doent want chopped or full liquids. Denied any swallow eval at this time. Discusse with her about the side effects of RT. Review of Systems Constitutional: Reports: see HPI. Objective Last 24 Hrs of Vital Signs/I&O Vital Signs Date Time Temp Pulse Resp B/P B/P Pulse O2 O2 Flow FiO2 Mean Ox Delivery Rate 11/07 0000 Room Air 11/06 2203 98.2 87 19 158/82 94 11/06 1731 78 140/70 11/06 1600 Room Air 11/06 1425 97.9 72 20 150/80 96 Room Air 11/06 0800 97 Trach Mask 11/06 0638 98.0 69 20 154/88 97 Intake & Output 11/07 0800 11/07 0000 11/06 1600 Intake Total 800 Output Total Balance 800 Intake, Oral 800 Number 0 Bowel Movements Physical Exam General Appearance: No Acute Distress Other Physical Findings: General Exam: AAOx3, mild distress, Skin: No rashes, no breakdown HEENT: PERRLA, EOMI Neck: Supple, No JVD No cervical lymphadenopathy CVS: Reg Rate, Normal S1,S2, No MGR Resp: decreased air entry b/l, b/l rales Abdomen: Soft, No tenderness, Normal Bowel Sounds Neuro: Normal Speech, Strength 5/5 b/l x 4 extremities, Sensation intact, CN III -XII NL, Reflexes 2+ Extremities: No cyanosis, 1+ pedal edema Current Medications: Current Medications Sig/Kaya Start time Last Medication Dose Route Stop Time Status Admin Amlodipine Besylate 5 MG 1800 11/03 1800 AC 11/06 PO 1731 Azithromycin 500 MG 1600 / 1600 AC 11/06 Sodium Chloride 250 ML IV 1545 Clopidogrel Bisulfate 75 MG Q48 / 1630 AC 11/06 PO 173 Gabapentin 100 MG QPM 11/02 220 AC 11/06 PO 2103 Guaifenesin 600 MG Q12 11/02 2244 AC 11/06 PO 2103 Heparin Sodium 5,000 UNIT Q8 11/02 2200 AC 11/03 (Porcine) SC 1511 Loratadine 10 MG DAILY 11/03 1000 AC 11/06 PO 1047 Nystatin 1 EMMIE BID 11/05 2199 AC 11/06 TOP 2106 Prednisone 40 MG DAILY 11/05 1000 AC 11/06 PO 1047 Last 24 Hrs of Lab/Efra Results Last 24 Hrs of Labs/Mics: Laboratory Tests 11/07/16 0600: Anion Gap 8, Estimated GFR 34 L, BUN/Creatinine Ratio 22.7, CBC w Diff NO MAN DIFF REQ, RBC 3.76 L, MCV 91.3, MCH 30.0, RDW 14.3, MPV 8.2, Gran % 73.9, Lymphocytes % 16.9 L, Monocytes % 8.6, Eosinophils % 0.5, Basophils % 0.1, Absolute Granulocytes 9.6 H, Absolute Lymphocytes 2.2, Absolute Monocytes 1.1 H, Absolute Eosinophils 0.1, Absolute Basophils 0, PUBS MCHC 32.8 L Assessment/Plan Assessment: Ms. 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 Last chemo 07/15. Differential diagnosis: #1 metastatic lymphadenopathy secondary to non-small cell carcinoma #2 non-small cell lung cancer adenocarcinoma 1. shortness of breath-likely because of obstruction of upper airways : NSCLC mets to the brain, and also has lymphadenopathy. Currently undergoing radiation therapy. Pt on prednisone taper, as per pulomonologist's recommendation. Discussed with Dr. Avina, if any steroid taper is recommended in view of RT, and was advised to continue the same. RT planned for 10 days. Discuss about the goals of care, and discuss about the autoimmune diseases being affected by pembrolizumab. DVT prophylaxis- ALPS at all times. Heprin sc. Discharge dispo- Pt has been cleard by pulm, and onc; but wanted to have PT see her. Plan for a discharge in the am. Problem List: 1. Hilar mass 2. Discoid lupus 3. COPD (chronic obstructive pulmonary disease) 4. Non-small cell lung cancer (NSCLC) 5. Brain metastasis Pain Ratin Pain Location: none Pain Goal: Pain 4 or less Pain Plan: tylenol prn Tomorrow's Labs & Rationales: no labs- stable. KERI ROPER MDMARISOLCHERI 11/07/16 1002: Attending MD Review Statement Attending Statement Attending MD Statement: examined this patient, discuss w/resident/PA/SHARED SERVICES MANAGER, agreed w/resident/PA/SHARED SERVICES MANAGER, reviewed EMR data (avail), discussed with nursing, discussed with case mgmt, amended to note Attending Assessment/Plan: Patient seen and examined. Lying in bed not in acute distress. Denies shortness of breath at rest but does admit to shortness of breath patient. Denies cough at rest. She reports fullness in her throat which began after initiation of radiation therapy. She reports that the base spontaneously but is recurrent. She reports that the oncology service as informed her that this is expected and will evy after several weeks. She admits to being anxious about this ovary adamantly declines to be started on any anxiolytic medication. She states that the symptoms evy spontaneously. She remains afebrile and hemodynamically stable. She continues to maintain saturation on room air. On examination she does have mild rhonchi bilaterally. She does continue to take deep breaths after a few sentences. He has no evidence of volume overload on examination. Recommendations: -Pulmonology follow-up appreciated. IV Solu-Medrol was discontinued on November 04. Patient is on day 4 of prednisone 40 mg orally daily. Awaiting recommendations regarding taper. -Oncology follow-up appreciated. Recommendations are to continue radiation therapy and for further discussion of second line therapy as an outpatient. -Patient has non-small cell lung adenocarcinoma with metastasis. She has a large mass likely subcarinal lymph node obstructing mainstem bronchi with esophageal displacement. Radiation therapy is currently for palliation. Oncology wishes to discuss second line therapy as an outpatient. Patient remains a full code and only wishes to discuss her CODE STATUS with the pulmonology and oncology service. -Continue other supportive care. -Patient to be discharged home once cleared by the pulmonology and oncology service. -Her last dose of radiation therapy is next week Monday11/14/2016.
[2016-11-07 06:53] VITALS: BP 154/98
[2016-11-07 08:17] LABS: ABSOLUTE BASOPHIL COUNT 0 /CUMM (0.0-0.2); ABSOLUTE EOSINOPHIL COUNT 0.1 /CUMM (0.0-0.7); ABSOLUTE GRANULOCYTE CT 9.6 /CUMM (1.4-6.5); ABSOLUTE LYMPH COUNT 2.2 /CUMM (1.2-3.4); ABSOLUTE MONOCYTE COUNT 1.1 /CUMM (0.10-0.60); BASOPHIL % 0.1 % (0.0-2.0); EOSINOPHIL % 0.5 % (0-5); GRANULOCYTE % 73.9 % (42.2-75.2); HEMATOCRIT 34.3 % (37-47); MEAN CORPUSCULAR HGB CONC 32.8 G/DL (33.0-37.0); MEAN CORPUSCULAR VOLUME 91.3 FL (81.0-99.0); MEAN PLATELET VOLUME 8.2 FL (7.4-10.4); PLATELET COUNT 284 /CUMM (130-400); RBC DISTRIBUTION WIDTH 14.3 % (11.5-14.5); RED BLOOD CELL CT 3.76 /CUMM (4.20-5.40); WHITE BLOOD CELL COUNT 12.9 /CUMM (4.8-10.8)
--- NOTE | 2016-11-07 09:36 | PN- Oncology ---
Subjective Subjective: She feels about the same. She has shortness of breath and wheezing with ambulation. She has no fever or chills. She has no new pain. She has no nausea or vomiting. She does have a globus sensation and heartburn symptoms. Review of Systems: Constitutional: Reports: weakness. Denies: chills, fever. Cardiovascular: Denies: chest pain, palpitations, peripheral edema, syncope. Respiratory: Reports: cough, short of breath. Denies: hemoptysis, sputum production. GI:Denies: abdominal pain. Neurological/Psychological: Reports: anxiety. Immunologic/Allergic: Denies: lymphadenopathy. All Other Systems: Reviewed and Negative Objective Vital Signs and I&Os Vital Signs Date Time Temp Pulse Resp B/P B/P Pulse O2 O2 Flow FiO2 Mean Ox Delivery Rate 11/07 0553 98.1 80 20 154/98 96 11/07 0000 Room Air 11/06 2203 98.2 87 19 158/82 94 11/06 1731 78 140/70 11/06 1600 Room Air 11/06 1425 97.9 72 20 150/80 96 Room Air Intake & Output 11/07 1600 11/07 0800 11/07 0000 / 1600 11/06 0800 11/06 0000 Intake Total 800 120 120 Output Total Balance 800 120 120 Intake, Oral 800 120 120 Number 0 Bowel Movements Physical Exam: General Appearance: well developed/nourished, no apparent distress, alert, awake , comfortable Head: atraumatic Eyes: Bilateral: PERRL, EOMI. Ears, Nose, Throat: moist mucus membranes Respiratory: chest non-tender, no respiratory distress, wheezing Cardiovascular: regular rate/rhythm Gastrointestinal: normal bowel sounds, soft, non-tender Extremities: no edema Neurologic/Psych: awake, alert, oriented x 3 Current Medications: Current Medications Sig/Kaya Start time Last Medication Dose Route Stop Time Status Admin Amlodipine Besylate 5 MG 1800 11/03 1800 AC 11/06 PO 1731 Azithromycin 500 MG 1600 11/03 1600 AC 11/06 Sodium Chloride 250 ML IV 1545 Clopidogrel Bisulfate 75 MG Q48 11/06 1630 AC 11/06 PO 1731 Gabapentin 100 MG QPM 11/02 2200 AC 11/06 PO 2103 Guaifenesin 600 MG Q12 11/02 2244 AC 11/07 PO 0907 Heparin Sodium 5,000 UNIT Q8 11/02 2199 AC 11/03 (Porcine) SC 1511 Loratadine 10 MG DAILY 11/03 1000 AC 11/07 PO 0907 Nystatin 1 EMMIE BID 11/05 2199 AC 11/07 TOP 0907 Prednisone 40 MG DAILY 11/05 1000 AC 11/07 PO 0906 Results Last 24 Hours of Lab Results: Laboratory Tests 11/07 06 Chemistry Sodium (137 - 145 mmol/L) 141 Potassium (3.5 - 5.1 mmol/L) 4.0 Chloride (98 - 107 mmol/L) 106 Carbon Dioxide (22 - 30 mmol/L) 27 Anion Gap (5 - 16) 8 BUN (7 - 17 mg/dL) 34 H Creatinine (0.5 - 1.0 mg/dL) 1.5 H Estimated GFR (>60 ml/min) 34 L BUN/Creatinine Ratio (7 - 25 %) 22.7 Hematology CBC w Diff NO MAN DIFF REQ WBC (4.8 - 10.8 /CUMM) 12.9 H RBC (4.20 - 5.40 /CUMM) 3.76 L Hgb (12.0 - 16.0 G/DL) 11.3 L Hct (37 - 47 %) 34.3 L MCV (81.0 - 99.0 FL) 91.3 MCH (27.0 - 31.0 PG) 30.0 RDW (11.5 - 14.5 %) 14.3 Plt Count (130 - 400 /CUMM) 284 MPV (7.4 - 10.4 FL) 8.2 Gran % (42.2 - 75.2 %) 73.9 Lymphocytes % (20.5 - 51.1 %) 16.9 L Monocytes % (1.7 - 9.3 %) 8.6 Eosinophils % (0 - 5 %) 0.5 Basophils % (0.0 - 2.0 %) 0.1 Absolute Granulocytes (1.4 - 6.5 /CUMM) 9.6 H Absolute Lymphocytes (1.2 - 3.4 /CUMM) 2.2 Absolute Monocytes (0.10 - 0.60 /CUMM) 1.1 H Absolute Eosinophils (0.0 - 0.7 /CUMM) 0.1 Absolute Basophils (0.0 - 0.2 /CUMM) 0 PUBS MCHC (33.0 - 37.0 G/DL) 32.8 L Assessment/Plan Assessment/Recommendations: Ms. 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 CT imaging on admission demonstrated new subcarinal mass causing compression of the mainstem bronchus. There has been some improving in her breathing with bronchodilators and steroid. She has started radiation. She will need to start second line therapy as an outpatinet. Recommendations: 1. Continue current respiratory support with steroid and bronchodilators 2. Continue radiation therapy as per radiation oncology 3. Follow up as outpatient to discuss therapy Please call [phone] with any questions or concerns. Problem List: 1. Non-small cell lung cancer (NSCLC) 2. Brain metastasis 3. Respiratory failure 4. COPD (chronic obstructive pulmonary disease)
--- NOTE | 2016-11-07 09:53 | PN- Pulmonary ---
Subjective HPI/Critical Care Issues: pt seen and examined comfortable wheezing plan for RT Objective Current Medications: Current Medications Sig/Kaya Start time Last Medication Dose Route Stop Time Status Admin Amlodipine Besylate 5 MG 1800 11/03 1800 AC 11/06 PO 1731 Azithromycin 500 MG 1600 11/03 1600 AC 11/06 Sodium Chloride 250 ML IV 1545 Clopidogrel Bisulfate 75 MG Q48 / 1630 AC 11/06 PO 1731 Gabapentin 100 MG QPM 11/02 2200 AC 11/06 PO 2103 Guaifenesin 600 MG Q12 11/02 2244 AC 11/07 PO 0907 Heparin Sodium 5,000 UNIT Q8 11/02 2200 AC 11/03 (Porcine) SC 1511 Loratadine 10 MG DAILY 11/03 1000 AC 11/07 PO 09 Nystatin 1 EMMIE BID 11/05 220 AC 11/07 TOP 0907 Prednisone 40 MG DAILY 11/05 1000 AC 11/07 PO 0906 Vital Signs & I&O Last 24 Hrs of Vitals and I&O: Vital Signs Date Time Temp Pulse Resp B/P B/P Pulse O2 O2 Flow FiO2 Mean Ox Delivery Rate 11/07 0653 98.1 80 20 154/98 96 11/07 0000 Room Air 11/06 2203 98.2 87 19 158/82 94 11/06 1731 78 140/70 / 1600 Room Air 11/06 1425 97.9 72 20 150/80 96 Room Air Exam Other Physical Findings: gen awake and alert heent ncat cvs s1, s2 lungs bilateral wheezing abd soft, bs+ ext without edema, +clubbing Results Last 24 Hrs of Lab Results: Laboratory Tests 11/07/16 0600: Anion Gap 8, Estimated GFR 34 L, BUN/Creatinine Ratio 22.7, CBC w Diff NO MAN DIFF REQ, RBC 3.76 L, MCV 91.3, MCH 30.0, RDW 14.3, MPV 8.2, Gran % 73.9, Lymphocytes % 16.9 L, Monocytes % 8.6, Eosinophils % 0.5, Basophils % 0.1, Absolute Granulocytes 9.6 H, Absolute Lymphocytes 2.2, Absolute Monocytes 1.1 H, Absolute Eosinophils 0.1, Absolute Basophils 0, PUBS MCHC 32.8 L Impression/Plan Impression/Plan Impression/Plan: Impression * nsclc adenocarcinoma with mets * narrowing of mainstem bronchi and esophageal displacement and compression from an increased subcarinal LN Plan -radiation oncology appreciated, plan for RT today -dc solumedrol, begin prednisone 60mg and ask RT if they prefer any steroids for RT regimen -f/u oncology -given degree of compression and location, bronchoscopic evaluation will not be useful at this time -compression involves multiple structure and other than radiation no obvious solution -cough suppression DVT prophylaxis at all times
[2016-11-07 11:17] VITALS: BP 138/80
--- NOTE | 2016-11-07 11:30 | NUR ---
NSG NOTE: PATIENT LEFT FLOOR FOR CANCER CENTER (RADIATION) AT 1125 VIA AMBULENCE ACCOMPANIED BY EMS; PATIENT A/OX3; RA; WILL CONT TO WAIT FOR PATIENTS RETURN
[2016-11-07 14:23] VITALS: BP 138/76
[2016-11-07 22:19] VITALS: BP 142/70
[2016-11-08 06:07] VITALS: BP 128/76
--- NOTE | 2016-11-08 06:07 | Patient Discharge Instructions ---
Discharge Instructions General Discharge Information You were seen/treated for: - shortness of breath - lung mass You had these procedures: - Radiation Watch for these problems: - worsening shortness of breath chest pain, palpitations - dizziness, lightheadedness Special Instructions: - please see your pcp within one week of discharge. - Please see your oncologoist and radiation oncologist within one week of discharge. Please see your radiation oncologist on 11/09/16 at 11:45 AM. - Please see your lung doctor/telecasting engineer within one week of discharge. - If you have any worsenign symptoms, please seek medical advice immediately. - Please complete the prednisone taper as prescribed. Acute Coronary Syndrome Inclusion Criteria At DC or during hospital stay patient has or had the following: ACS DIAGNOSIS No Discharge Core Measures Meds if any: Prescribed or Continued at Discharge Meds if any: NOT Prescribed or Continued at Discharge Congestive Heart Failure Inclusion Criteria At DC or during hospital stay patient has or had the following: CHF DIAGNOSIS No Discharge Core Measures Meds if any: Prescribed or Continued at Discharge Meds if any: NOT Prescribed or Continued at Discharge Cerebrovascular accident Inclusion Criteria At DC or during hospital stay patient has or had the following: CVA/TIA Diagnosis No Discharge Core Measures Meds if any: Prescribed or Continued at Discharge Meds if any: NOT Prescribed or Continued at Discharge Venous thromboembolism Inclusion Criteria VTE Diagnosis No Discharge Core Measures - Per Current guidelines, there needs to be overlap - treatment for the first 5 days of Warfarin therapy. - If discharged on Warfarin prior to 5 days of - overlap therapy, the patient will need to be - assessed for post discharge needs including - *Post discharge parental anticoagulation - *Warfarin and/or parental anticoagulation education - *Follow up date to check INR post discharge At least 5 days overlap therapy as Inpatient No Meds if any: Prescribed or Continued at Discharge Note: Overlap Therapy is Warfarin and Anticoagulant Meds if any: NOT Prescribed or Continued at Discharge
--- NOTE | 2016-11-08 06:08 | PN- Housestaff ---
KIERAN INGRAM 11/08/16 0607: Subjective Follow-up For: - shortness of breath - lung mass Subjective: Pt was comfortable. SHe still has SOB upon ambulaiton. vitals stable. Discussed with her about her symptoms, and if worsened; would seek medical advice.The pt decline the use of oxygen. Review of Systems Constitutional: Reports: see HPI. Objective Last 24 Hrs of Vital Signs/I&O Vital Signs Date Time Temp Pulse Resp B/P B/P Pulse O2 O2 Flow FiO2 Mean Ox Delivery Rate 11/08 0607 97.9 77 20 128/76 96 Room Air 11/08 0000 Room Air 11/07 2219 98.3 84 20 142/70 96 Room Air 11/07 1826 160/90 / 1600 Room Air 11/07 1423 98.7 92 20 138/76 95 Room Air 11/07 1117 97.8 84 20 138/80 11/07 0800 Room Air 11/07 0653 98.1 80 20 154/98 96 Intake & Output 11/08 0800 11/08 0000 11/07 1600 Intake Total 480 1800 Output Total 550 Balance 480 1250 Intake, IV 0 Intake, Oral 480 1800 Number 0 Bowel Movements Output, Urine 550 Physical Exam General Appearance: No Acute Distress Other Physical Findings: General Exam: AAOx3, mild distress, Skin: No rashes, no breakdown HEENT: PERRLA, EOMI Neck: Supple, No JVD No cervical lymphadenopathy CVS: Reg Rate, Normal S1,S2, No MGR Resp: decreased air entry b/l, b/l rales Abdomen: Soft, No tenderness, Normal Bowel Sounds Neuro: Normal Speech, Strength 5/5 b/l x 4 extremities, Sensation intact, CN III -XII NL, Reflexes 2+ Extremities: No cyanosis, 1+ pedal edema Current Medications: Current Medications Sig/Kaya Start time Last Medication Dose Route Stop Time Status Admin Amlodipine Besylate 5 MG 1800 / 1800 AC 11/07 PO 1826 Azithromycin 500 MG 1600 / 1600 DC 11/06 Sodium Chloride 250 ML IV 1545 Clopidogrel Bisulfate 75 MG Q48 / 1630 AC 07/ PO 1731 Gabapentin 100 MG QPM / 2200 AC 11/07 PO 204 Guaifenesin 600 MG Q12 11/02 2244 AC 11/07 PO 204 Heparin Sodium 5,000 UNIT Q8 11/02 2200 AC 11/03 (Porcine) SC 1511 Loratadine 10 MG DAILY 11/03 1000 AC 11/07 PO 0907 Nystatin 1 EMMIE BID 11/05 2200 AC 11/07 TOP 0907 Patient Medication 1 ED .STK-MED ONE 11/07 1403 DC Teaching ED 11/07 1404 Prednisone 60 MG DAILY 11/08 1000 AC PO 11/08 1001 Prednisone 20 MG ONCE ONE 11/07 1100 DC 11/07 PO 11/07 1101 1427 Prednisone 40 MG DAILY 11/05 1000 DC 11/07 PO 0906 Assessment/Plan Assessment: Ms. 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 Last chemo 07/15. Differential diagnosis: #1 metastatic lymphadenopathy secondary to non-small cell carcinoma #2 non-small cell lung cancer adenocarcinoma 1. shortness of breath-likely because of obstruction of upper airways : NSCLC mets to the brain, and also has lymphadenopathy. Currently undergoing radiation therapy. She returns back to the RT in the am. Informed the pt. Pt on prednisone taper, as per pulomonologist's recommendation. RT planned for 10 days. Discuss about the goals of care, and discuss about the autoimmune diseases being affected by pembrolizumab. DVT prophylaxis- ALPS at all times. Heprin sc. Discharge dispo- Pt has been cleard by pulm, and onc. Problem List: 1. Hilar mass 2. Discoid lupus 3. Brain metastasis 4. Non-small cell lung cancer (NSCLC) Pain Ratin Pain Location: back Pain Goal: Pain 4 or less Pain Plan: tylenol, oxycodone Tomorrow's Labs & Rationales: none, pt stable. JUDSON PALMA,SWATHI 11/08/16 1214: Attending MD Review Statement Attending Statement Attending MD Statement: examined this patient, discuss w/resident/PA/COUNTER SUPERVISOR, agreed w/resident/PA/COUNTER SUPERVISOR, reviewed EMR data (avail), discussed with nursing, discussed with case mgmt, amended to note Attending Assessment/Plan: Patient seen and examined. She remains alert and oriented 3 in no distress at rest. She remains afebrile and hemodynamically stable. She continues to maintain saturation on room air. However she continues to have difficulty ambulating long distances due to shortness of breath. She continues to tolerate her radiation therapy sessions. On examination she has fair entry bilaterally with mild rhonchi in the left lung. Case was discussed with the pulmonology group and the oncology group. At this point in there is no further indication for inpatient medical management. She can continue on prednisone taper as an outpatient follow-up with the radiation service for ongoing radiation therapy. I did have a conversation with the patient regarding care at home. She reports that she has children in her immediate vicinity were able to assist her with care at home. She declined visiting nurse services offered by the case planner. She did request for assistance with transportation to radiation therapy sessions, case planner will be providing her with options. She is medically stable to discharge home today. Her prognosis is poor due to her underlying malignancy. She will be following up with the hematology service as an outpatient for further therapy. CODE STATUS and other long-term care treatment will be directed by the oncology service.
[2016-11-08] MEDS ORDERED: OMEPRAZOLE20 M2 PO (09:12)
[2016-11-08] MEDS ORDERED: PREDNISONE10 M2 PO ×3 (09:12→11:43)
--- NOTE | 2016-11-08 10:50 | PN- Pulmonary ---
Subjective HPI/Critical Care Issues: pt seen and examined comfortable on room air afebrile Objective Current Medications: Current Medications Sig/Kaya Start time Last Medication Dose Route Stop Time Status Admin Amlodipine Besylate 5 MG 1800 11/03 1800 AC 11/07 PO 1826 Azithromycin 500 MG 1600 11/03 1600 DC 11/06 Sodium Chloride 250 ML IV 1545 Clopidogrel Bisulfate 75 MG Q48 / 1630 AC 11/08 PO 0909 Gabapentin 100 MG QPM / 2200 AC 11/07 PO 2046 Guaifenesin 600 MG Q12 11/02 2244 AC 11/08 PO 0909 Heparin Sodium 5,000 UNIT Q8 / 2200 AC 11/03 (Porcine) SC 1511 Loratadine 10 MG DAILY 11/03 1000 AC 11/08 PO 0909 Nystatin 1 EMMIE BID 11/05 2200 AC 11/08 TOP 0910 Patient Medication 1 ED .STK-MED ONE 11/07 1403 DC Teaching ED 11/07 1404 Prednisone 60 MG DAILY 11/08 1000 DC 11/08 PO 11/08 1001 0909 Prednisone 20 MG ONCE ONE 11/07 1100 DC 11/07 PO 11/07 1101 1427 Prednisone 40 MG DAILY 11/05 1000 DC 11/07 PO 0906 Vital Signs & I&O Last 24 Hrs of Vitals and I&O: Vital Signs Date Time Temp Pulse Resp B/P B/P Pulse O2 O2 Flow FiO2 Mean Ox Delivery Rate 11/08 0800 Room Air 11/08 0607 97.9 77 20 128/76 96 Room Air 11/08 0000 Room Air 11/07 2219 98.3 84 20 142/70 96 Room Air 11/07 1826 160/90 11/07 1600 Room Air 11/07 1423 98.7 92 20 138/76 95 Room Air / 1117 97.8 84 20 138/80 Intake & Output 11/08 1600 11/08 0800 11/08 0000 Intake Total 480 480 Output Total Balance 480 480 Intake, Oral 480 480 Exam Other Physical Findings: gen awake and alert heent ncat cvs s1, s2 lungs bilateral wheezing abd soft, bs+ ext without edema, +clubbing Impression/Plan Impression/Plan Impression/Plan: Impression * nsclc adenocarcinoma with mets * narrowing of mainstem bronchi and esophageal displacement and compression from an increased subcarinal LN Plan -radiation oncology appreciated -prednisone taper as ordered -dc planning -f/u oncology -cough suppression DVT prophylaxis at all times
--- NOTE | 2016-11-08 10:51 | PN- Oncology ---
Subjective Subjective: She is doing well. She still has issue with ambulating for longer distance. She has no chest pain. Review of Systems: Constitutional: Reports: weakness. Denies: chills, fever. Cardiovascular: Denies: chest pain, palpitations, peripheral edema, syncope. Respiratory: Reports: cough, short of breath. Denies: hemoptysis, sputum production. GI:Denies: abdominal pain. Neurological/Psychological: Reports: anxiety. Immunologic/Allergic: Denies: lymphadenopathy. All Other Systems: Reviewed and Negative Objective Vital Signs and I&Os Vital Signs Date Time Temp Pulse Resp B/P B/P Pulse O2 O2 Flow FiO2 Mean Ox Delivery Rate 11/08 08 Room Air 11/08 0607 97.9 77 20 128/76 96 Room Air 11/08 0000 Room Air 11/07 2219 98.3 84 20 142/70 96 Room Air 11/07 1826 160/90 11/07 1600 Room Air 11/07 1423 98.7 92 20 138/76 95 Room Air 11/07 1117 97.8 84 20 138/80 Intake & Output 11/08 1600 11/08 0800 11/08 0000 11/07 1600 11/07 0800 11/07 0000 Intake Total 169 001 7450 Output Total 550 Balance 160 046 4961 Intake, IV 0 Intake, Oral 844 749 6083 Number 0 Bowel Movements Output, Urine 550 Physical Exam: General Appearance: well developed/nourished, no apparent distress, alert, awake , comfortable Head: atraumatic Eyes: Bilateral: PERRL, EOMI. Ears, Nose, Throat: moist mucus membranes Respiratory: chest non-tender, no respiratory distress, wheezing Cardiovascular: regular rate/rhythm Gastrointestinal: normal bowel sounds, soft, non-tender Extremities: no edema Neurologic/Psych: awake, alert, oriented x 3 Current Medications: Current Medications Sig/Kaya Start time Last Medication Dose Route Stop Time Status Admin Amlodipine Besylate 5 MG 1800 / 1800 AC 11/07 PO 1826 Azithromycin 500 MG 1600 11/03 1600 DC 11/06 Sodium Chloride 250 ML IV 1545 Clopidogrel Bisulfate 75 MG Q48 / 1630 AC 11/08 PO 0909 Gabapentin 100 MG QPM / 2200 AC 11/07 PO 2046 Guaifenesin 600 MG Q12 11/02 2244 AC 11/08 PO 0909 Heparin Sodium 5,000 UNIT Q8 11/02 2200 AC 11/03 (Porcine) SC 1511 Loratadine 10 MG DAILY 11/03 1000 AC 11/08 PO 0909 Nystatin 1 EMMIE BID 11/05 2200 AC 11/08 TOP 0910 Patient Medication 1 ED .STK-MED ONE 11/07 1403 DC Teaching ED 11/07 1404 Prednisone 60 MG DAILY 11/08 1000 DC 11/08 PO 11/08 1001 0909 Prednisone 20 MG ONCE ONE 11/07 1100 DC 11/07 PO 11/07 1101 1427 Prednisone 40 MG DAILY 11/05 1000 DC 11/07 PO 0906 Assessment/Plan Assessment/Recommendations: Ms. 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 CT imaging on admission demonstrated new subcarinal mass causing compression of the mainstem bronchus. There has been some improving in her breathing with bronchodilators and steroid. She has started radiation. She is stable for now. She has no new symptoms. Recommendations: 1. Continue current respiratory support with steroid and bronchodilators 2. Continue radiation therapy as per radiation oncology 3. PT evaluation and ? home health/nursing 4. Follow up as outpatient to discuss therapy Please call [phone] with any questions or concerns. Problem List: 1. Brain metastasis 2. Non-small cell lung cancer (NSCLC) 3. Respiratory failure
[2016-11-08] MEDS ORDERED: PRAVASTATIN SOD20 M2 (12:15)
--- NOTE | 2016-11-08 13:42 | NUR ---
PHYSICAL THERAPY: CONSULT RECEIVED AND CHART REVIEWED. PT IS CURRENTLY AMBULATING AROUND THE ROOM I. SHE WAS OFFERED TO TRIAL STAIRS OF WHICH SHE DECLINED. SHE DOES APPEAR TO DEMONSTRATE THE APPROPRIATE STRENGTH AND BALANCE TO NEGOTIATE STAIRS. DISCUSSED ENERGY CONSERVATION TECHNIQUES TO PERFORM DURING STAIR NEGOTIATION. AT THIS TIME ACUTE SKILLED PT IS NOT INDICATED AND WILL NOT FOLLOW. THANK YOU.
--- NOTE | 2016-11-08 13:52 | NUR ---
NSG NOTE: AMBULATORY SAT 95% ON ROOM AIR
== END 2016-11-08 15:30 | disposition home health service (06) | DRG 840 ==
LOC: ERH 16:13 → 2NB 19:23 → ERHI 19:23 → 2NB 19:23 → ENRESERV 22:00 → 2NB 23:22 → ENPENDDIS 11-08 11:44 → 2NB 11-08 15:30
PROVIDERS: Internal Medicine Endocrinology, Diabetes & Metabolism; Physician Assistant; Student in an Organized Health Care Education/Training Program; ADMIT Student in an Organized Health Care Education/Training Program
PROC: DB0 Radiation Therapy, Respiratory System, Beam Radiation (ICD-10-PCS; principal; 2016-11-04)
PROC: DB0 Radiation Therapy, Respiratory System, Beam Radiation (ICD-10-PCS; 2016-11-05)
PROC: DB0 Radiation Therapy, Respiratory System, Beam Radiation (ICD-10-PCS; 2016-11-07)
PROC: DB0 Radiation Therapy, Respiratory System, Beam Radiation (ICD-10-PCS; 2016-11-08)
DX: C77.1 Secondary and unspecified malignant neoplasm of intrathoracic lymph nodes (principal); J96.01 Acute respiratory failure with hypoxia; C79.31 Secondary malignant neoplasm of brain; C34.2 Malignant neoplasm of middle lobe, bronchus or lung; N18.3 Chronic kidney disease, stage 3 (moderate); D63.8 Anemia in other chronic diseases classified elsewhere; K22.8 Other specified diseases of esophagus; J44.9 Chronic obstructive pulmonary disease, unspecified; I12.9 Hypertensive chronic kidney disease with stage 1 through stage 4 chronic kidney disease, or unspecified chronic kidney disease; K22.2 Esophageal obstruction; L93.0 Discoid lupus erythematosus; I25.2 Old myocardial infarction; M79.7 Fibromyalgia; I25.10 Atherosclerotic heart disease of native coronary artery without angina pectoris; J30.9 Allergic rhinitis, unspecified; Z85.41 Personal history of malignant neoplasm of cervix uteri; Z87.891 Personal history of nicotine dependence
CPT/HCPCS: 1263; 77280-TC; 77290-TC; 77295-TC; 77300-TC; 77334-TC; 77387-TC; 77412-TC; 82436; 87070; 93005; 93010; 96374; J0456; J1642; J1644; J2920; J2930; J7040